=== PATIENT | female | born 1995 | race American Indian/Alaskan Native ===

== ENCOUNTER 2016-07-10 23:36 | Emergency (ER) | payer SELFPAY | END 2016-07-11 00:45 | disposition left against medical advice (07) | LOC: ED 23:36 | DX: O20.9 Hemorrhage in early pregnancy, unspecified (principal); Z3A.08 8 weeks gestation of pregnancy; Z53.21 Procedure and treatment not carried out due to patient leaving prior to being seen by health care provider ==